=== PATIENT | female | born 1930 | race Caucasian/White ===

== ENCOUNTER → 2016-07-27 | Outpatient (CLI) | payer MEDICARE, OTHER ==
[~2016-07-27] MED LIST: ALDACTONE25 MG PO; ASPIRIN (CHILDR81 MG PO; CEFADROXIL500 MG; COLACE100 MG PO; COUMADIN ** IA5 MG; COUMADIN ** IA5 MG PO; COZAAR50 MG; COZAAR50 MG PO; DELTASONE10 MG PO; DUONEB INH; DURICEF (NON-500 MG PO; EFUDEX; ENSURE HIGH PR237 M1 PO; FISH OIL 1,2001 EAC2 PO; FOLIC ACID1 MG; FOLIC ACID1 MG PO; FORTEO 6001 PEN/600; LASIX20 MG; LASIX20 MG PO; LEVAQUIN 250 M250 MG PO; LEVOTHROID (S112 MCG PO; LEVOTHROID (S125 MCG; LIPITOR10 M1; LIPITOR80 MG PO; LOPRESSOR25 MG PO; MAG-OX-400(241400 MG; MAG-OX-400(241400 MG PO; METHOTREXA25 MG/1 M3 IM; MILK OF MA400 MG/5 M PO; MINOCIN100 M2; MINOCIN100 M2 PO; MULTIVITAMINS1 EAC1; NEURONTIN100 MG; NEURONTIN100 MG PO; NORCO 5-325 MG1 TAB PO; PRESERVISION A1 EACH PO; PROAIR HFA8.5 GM; RANITIDINE HCL150 M1 PO; REFRESH OPTIVE15 ML OPHTH; REFRESH P.M. O3.5 GM OPHTH; REMERON15 MG; ROBITUSSIN DM120 ML; SPIRIVA HANDIHA1 KIT; SPIRONOLACTONE25 MG; SYMBICORT 16010.2 GM INH; THERAGRAN-M1 TAB PO; TYLENOL EXTRA500 MG; TYLENOL EXTRA500 MG PO; VICKS DAYQUIL-1 EACH; VICKS NYQUIL C354 M2 PO; XARELTO20 MG PO
--- NOTE | ~2016-07-27 | PUL ---
PATIENT'S NAME: EMPERATRIZ MUÑOZ I [facility] AGE: 86 Y [address] ROOM: [place] [address] LOCATION: [facility] ADMIT DATE: 07/27/2016 Pulmonary DISCHARGE DATE: FAMILY PHYSICIAN: Jean Claude Foley MD ATTENDING PHYSICIAN: JAHAIRA HANSEN NAME OF PROCEDURE: Pulmonary Function Test DATE OF PROCEDURE: July 27, 2016 TECH: NAOMI Echeverria REASON FOR EXAM: COPD RESULTS: 1. FVC was 1.64 liters which is 104% of predicted and normal, FEV1 was 1.15 liters which is 101% of predicted and normal, and FEV1/FVC was 70% and normal. The flow volume curve did not reveal any significant airflow limitation. After bronchodilator administration FVC increased to 1.75 liters which is a 7% increase and FEV1 increased to 1.24 liters which is an 8% increase. FEV1/FVC was 71%. 2. DLCO was 6.3 with an adjusted DLCO of 6.9 which is 45% of predicted and low. 3. Total lung capacity was 3.88 liters which is 112% of predicted and normal, and residual volume was 2.23 liters which is 140% of predicted and normal. PHYSICIAN INTERPRETATION: The patient has no airflow limitation no significant bronchodilator response. Her diffusion capacity is moderately low. There is no evidence of restrictive lung disease. MD ROMÁN NASCIMENTO/adeola /[id number] dtt: 08/01/16 1443 , JAHAIRA HANSEN dtd: 08/01/16 1345
== END | disposition disaster alternative care site (69) ==
LOC: GRTH 09:00
DX: J43.9 Emphysema, unspecified (principal)

== ENCOUNTER 2016-08-08 17:13 | Inpatient (IN) | payer MEDICARE, OTHER ==
[~2016-08-08] VITALS: Ht 152.4 cm; Wt 71.4 kg
--- NOTE | ~2016-08-08 | CON ---
PATIENT'S NAME: EMPERATRIZ MUÑOZ I [facility] AGE: 86 Y [address] ROOM: [id number] [place], [place] [address] LOCATION: GPCU ADMIT DATE: 08/08/2016 Consultation DISCHARGE DATE: FAMILY PHYSICIAN: Jean Claude Foley MD ATTENDING PHYSICIAN: LULÚ WHITEHEAD V DATE OF CONSULTATION: 08/08/2016 REFERRING PHYSICIAN: Reginaldo Conner MD IDENTIFICATION: An 86-year-old female patient of Dr. Foley. HISTORY OF PRESENT ILLNESS: Mrs. Muñoz is an 86-year-old female patient, who developed central chest pain with some radiation to the jaw without any associated features or any other radiation, that was about 8 on a scale of 1-10 when she started having the pain. This is more or less lasted all through the night, and today, she went to for her routine checkup with Dr. Foley's office where her troponin was found to be elevated at 28, normal being 0.04 I think. She is hospitalized now, and her EKG shows heart rate of 60 beats per minute, and she has paced rhythm without any acute changes. Her pain is now down to about 4-5 on a scale of 1-10 with one nitroglycerin, but still, the pain is continuing on. The patient has some shortness of breath for the past 2 years. She has been in functional class III. There is no paroxysmal nocturnal dyspnea or orthopnea. She does have some dizziness. She denies syncopal spells. She has no palpitations. She has had a permanent pacemaker placed 5 years ago. She has some ankle edema. The patient has history of hypertension, elevated cholesterol, and she is an ex-smoker, who quit 25 years ago. She denies diabetes or family history of premature coronary artery disease. She was hospitalized about a month ago after having had a fall, and her troponin was elevated. She was on Coumadin for a longstanding history of pulmonary embolism. She was taken off the Coumadin, and she underwent a stress test, which was essentially unremarkable. There is no history of rheumatic fever or heart murmur. Her last echocardiogram really did not show any valvular abnormalities in 2013. There is no history of congestive heart failure or atrial fibrillation. CURRENT MEDICATIONS: 1. Aspirin 325 mg a day. PATIENT'S NAME: [facility] AGE: 86 Y [address] ROOM: [address] [place], [place] [address] LOCATION: GPCU ADMIT DATE: 08/08/2016 Consultation DISCHARGE DATE: FAMILY PHYSICIAN: Jean Claude Foley MD ATTENDING PHYSICIAN: LULÚ WHITEHEAD V 2. Atorvastatin 80 mg. 3. Nitroglycerin IV. 4. Methotrexate 10 mg every 14 days. 5. Vitamins. 6. Acetaminophen. 7. Atorvastatin 10 mg. 8. Duricef. 9. Folic acid. 10. Furosemide 20 mg a day. 11. Gabapentin 100 mg daily. 12. Levothyroxine. 13. Losartan 50 mg at bedtime. 14. Magnesium oxide 400 mg a day. 15. Minocycline 100 mg at bedtime. 16. [place]-3. 17. Combivent inhaler. 18. Refresh Optive eye drops. 19. Mineral oil. 20. Petrolatum. 21. Dextromethorphan. 22. Doxylamine. 23. Multivitamin. 24. Budesonide and formoterol. 25. Symbicort inhaler. 26. Ranitidine 150 mg a day. ALLERGIES: PENICILLIN, NEOMYCIN, BACITRACIN, POLYMYXIN, AMIODARONE. PAST MEDICAL HISTORY: 1. History of rheumatoid arthritis. 2. Methotrexate treatment. 3. History of fall with right shoulder hematoma, because of which she was taken off Coumadin. She is currently off. 4. History of pulmonary emboli in the past. 5. History of hypothyroidism. 6. Obstructive sleep apnea, noncompliant to CPAP. SOCIAL HISTORY: The patient lives by herself. She quit smoking in 1988. Does not drink any alcohol. FAMILY HISTORY: No premature coronary artery disease. PATIENT'S NAME: [facility] AGE: 86 Y [address] ROOM: [address] [place], [place] [address] LOCATION: GPCU ADMIT DATE: 08/08/2016 Consultation DISCHARGE DATE: FAMILY PHYSICIAN: Jean Claude Foley MD ATTENDING PHYSICIAN: LULÚ WHITEHEAD V REVIEW OF SYSTEMS: A 10-point review of systems reveal no significant positive other than the above. 1. The patient does have macular degeneration. 2. Discoloration of her facial skin. 3. DJD. 4. Lumbar spinal stenosis. 5. History of COPD. 6. Appendectomy. 7. Back surgery. 8. Ear surgery. 9. Right shoulder surgery. PHYSICAL EXAMINATION: VITAL SIGNS: On examination, her blood pressure is 130/80, heart rate is in the 60s and regular, respirations 18. The patient's pain is rated at 5 on a scale of 1-10. HEENT: Normal. NECK: Supple with no JVD, thyromegaly, lymphadenopathy, or carotid bruit. CARDIAC: PMI is not well located. First and second heart sounds are regular. There are no added sounds or murmurs. CHEST: Clear. ABDOMEN: Obese, soft. Bowel sounds are normally present. EXTREMITIES: Reveal no edema. Central nervous system is intact. ASSESSMENT AND PLAN: An 86-year-old female patient with prolonged chest pain with positive troponins up to 28 now. Her EKG shows a paced rhythm. Her BMP from last month show a creatinine of 1.0. Hemoglobin on July 27 was 11 g and platelet count is 272 in June. Her white count was 17 in June. Chest x-ray reveals no congestive heart failure. Eas-UV-vthzyux elevation myocardial infarction. As this is almost like a left bundle-branch block pattern, it is difficult to be sure whether she is having an acute ST-elevation myocardial infarction or not. Since she has had chest pain continuously for more than 12 hours, and her pain is still ongoing, we will proceed with cardiac catheterization at this time. Again, appreciate this opportunity to participate in the care of Mrs. Muñoz. She understands and agrees to proceed with the procedure. PATIENT'S NAME: EMPERATRIZ MUÑOZ I [facility] AGE: 86 Y [address] ROOM: [address] [address] LOCATION: GPCU ADMIT DATE: 08/08/2016 Consultation DISCHARGE DATE: FAMILY PHYSICIAN: Jean Claude Foley MD ATTENDING PHYSICIAN: LULÚ WHITEHEAD MD AMK/sandi /[id number] d: 08/09/16130 t: 08/09/16 1901, CONSULTATION REPORT
--- NOTE | ~2016-08-08 | DS ---
PATIENT'S NAME: EMPERATRIZ MUÑOZ I [facility] AGE: 86 Y [address] ROOM: [address] [place], [place] [address] LOCATION: GPCU ADMIT DATE: 08/08/2016 Discharge Summary DISCHARGE DATE: FAMILY PHYSICIAN: Jean Claude Foley MD ATTENDING PHYSICIAN: Stan Cruz V DISCHARGE DIAGNOSES: 1. Non-ST elevation myocardial infarction. 2. Chronic obstructive pulmonary disease. 3. Rheumatoid arthritis. 4. 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 5. Acute systolic and diastolic heart failure with an estimated ejection fraction of 45. 6. Cardiac pacemaker. REASON FOR ADMISSION: The patient came in with a chest pressure radiating to her back. This is associated with shortness of breath. LABORATORY DATA: Laboratory showed elevated enzymes. She subsequently had an elevated D-dimer as well. Chemistries showed a fairly benign blood gas on admission. Sodium and potassium were 142 and 3.6 on August 12. Potassium was down slightly at that point from admission. Calcium was slightly low at 8.1 with albumin low at 2.9. Initial AST was elevated; decreased subsequently, but still elevated. The proBNP was elevated at 3917 on August 11. TSH was normal. RADIOLOGY: Chest x-ray showed findings of fluid overload. HOSPITAL COURSE: The patient was out walking with physical therapy when she had a collapse. It is unknown whether or not she had acute PE or whether this was cardiac related because during the subsequent resuscitation time, she said she just wanted to . She was very lucid and articulate about this, and initially we placed her on palliative care, but over the course of 24 to 48 hours, with multiple family conferences, she decided that she would like to try rehab. She did not want a lot of diagnostic or therapeutic procedures, so we held back as far as that kind of thing, but she did say she would be willing to go to TCU and do physical therapy and occupational therapy, so we have ordered that to happen along with speech therapy. Note that in the last 12 hours, she has had weakness of the right upper and lower extremities consistent with TIA or CVA, probably the latter. Again, we have not been aggressive about looking into that because she wants to be comfortable. She is willing to work at rehab. In discussing the big picture with Dr. Foley yesterday, we elected to put her on Xarelto because we know PATIENT'S NAME: EMPERATRIZ MUÑOZ I [facility] AGE: 86 Y [address] ROOM: [id number] [place] [id number] LOCATION: GPCU ADMIT DATE: 08/08/2016 Discharge Summary DISCHARGE DATE: FAMILY PHYSICIAN: Jean Claude Foley MD ATTENDING PHYSICIAN: Stan Cruz V that clotting is a problem, both cardiac and pulmonary locations. At this time, she will be transferred. Medications per nursing med recon. Activity will be per physical therapy, occupational therapy, and speech. Diet will be as tolerated. Our primary goal again is going to be comfort and rehab and just see what she is willing and able to put up with. She has good family support, and we will go from there. MD EMILIA BENITEZ/modl /[id number] d: 08/13/16 1141 t: 08/13/16 174, DISCHARGE SUMMARY
--- NOTE | ~2016-08-08 | CON ---
PATIENT'S NAME: [facility] AGE: 86 Y [address] ROOM: [place] [address] LOCATION: GPCU ADMIT DATE: 08/08/2016 Consultation DISCHARGE DATE: 08/13/2016 FAMILY PHYSICIAN: Jean Claude Foley MD ATTENDING PHYSICIAN: Stan Cruz V DATE OF CONSULTATION: 08/12/2016 REFERRING PHYSICIAN: Reginaldo Conner MD PALLIATIVE MEDICINE CONSULTATION LOCATION: PCU Room [facility]. REFERRING PROVIDER: Yusuf Cottrell MD CHIEF COMPLAINT/REASON FOR CONSULTATION: Palliative Care referral for goals of care conversation. HISTORY OF PRESENT ILLNESS: The patient is an 86-year-old female who was admitted with complaints of sternal chest pain with radiation to her back. She was admitted for non- STEMI. She is status post heart catheterization which revealed reportedly a 100% occluded circumflex with an EF of 45%. Apparently this was going to be managed medically, but the day before this consult, the patient was walking in the rae with Physical Therapy. Had an unresponsive episode and a rapid response was called. She did require bagging by respiratory therapy, but during the event, she had periods of lucidity and had told staff that she just wanted to . On the day of the consult, the patient is lying in the bed, refusing all medications except for morphine, and refusing to eat or get out of bed. Given this, Palliative Care has been consulted to assist the patient and family with goals of care conversation. Reportedly, the patient lives alone at home with her daughter checking in on a daily basis. I do note that she has had a number of ER visits due to falls at home, one resulting in a hematoma to her chest wall recently. PAST SURGICAL HISTORY: Previous Operations: 1. x2. 2. Appendectomy. 3. Ear surgeries x3. 4. Back fusion. 5. Bilateral cataracts. 6. ORIF of the left wrist. PATIENT'S NAME: [facility] AGE: 86 Y [address] ROOM: [place] [address] LOCATION: GPCU ADMIT DATE: 08/08/2016 Consultation DISCHARGE DATE: 08/13/2016 FAMILY PHYSICIAN: Jean Claude Foley MD ATTENDING PHYSICIAN: Stan Cruz V 7. Right total shoulder. 8. Pacemaker placement in 2013. 9. Venous ablation of the left leg. 10. A cysto with a right stent. 11. Bilateral intra-ocular lens implants. 12. Carpal tunnel release. PAST MEDICAL HISTORY: 1. Rheumatoid arthritis. 2. Atrial fibrillation. 3. Hypertension. 4. Coronary artery disease. 5. History of PE. 6. Hypothyroidism. 7. Sick sinus syndrome. 8. COPD. 9. History of basal cell skin cancer. 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 11. GERD. MEDICATIONS: Home medications: 1. Tylenol 500 mg every 4 hours as needed. 2. Lipitor 10 mg p.o. at bedtime. 3. Symbicort 160/4.5 two puffs twice daily. 4. Refresh eyedrops 1 drop as needed. 5. Duricef 500 mg p.o. twice daily. 6. Vicks NyQuil 30 mg as needed. 7. Folic acid 1 mg as needed. 8. Lasix 20 mg daily. 9. Neurontin 100 mg p.o. daily. 10. Ipratropium and albuterol nebulizers 4 times daily. 11. Levothroid 112 mcg p.o. daily. 12. Cozaar 50 mg p.o. daily. 13. Magnesium oxide 400 mg daily. 14. Methotrexate 10 mg IM every 4 days. 15. Mineral oil eyedrops as needed or ointment as needed. 16. Minocin 100 mg p.o. daily. 17. Theragran multivitamin 1 tablet daily. 18. Fish oil 1200 mg daily. 19. Ranitidine 150 mg daily. 20. PreserVision eyedrops 1 cap twice daily. ALLERGIES: PENICILLIN, NEOMYCIN, BACITRACIN, AMIODARONE, AND POLYMYXIN B. PATIENT'S NAME: EMPERATRIZ MUÑOZ I [facility] AGE: 86 Y [address] ROOM: [place] [address] LOCATION: [facility] ADMIT DATE: 08/08/2016 Consultation DISCHARGE DATE: 08/13/2016 FAMILY PHYSICIAN: Jean Claude Foley MD ATTENDING PHYSICIAN: Stan Cruz V SOCIAL HISTORY: The patient is . Her of cancer a number of years ago. She has 3 children. A son and a daughter live [facility] [place] [facility] and a daughter is in [place]. She has a history of smoking a pack a day for 40 years. She quit in 1988. No current tobacco or alcohol use. FAMILY HISTORY: Has multiple brothers and sisters with heart disease and diabetes. Her mother of a stroke in her 80s and her father in accident when the patient was very young. REVIEW OF SYSTEMS: GENERAL: The patient is currently refusing any food. Denies being hungry. No changes in weight recently. No recent fever, chills, or night sweats. Denies fatigue. HEENT: No changes in vision or hearing. Her vision is not the best. No headaches. No sinus congestion. RESPIRATORY: Denies shortness of breath. CARDIOVASCULAR: No chest pain currently. No peripheral edema. GASTROINTESTINAL: Denies nausea, vomiting, diarrhea, or constipation. No blood in her stools. Denies difficulties chewing or swallowing. GENITOURINARY: No dysuria. MUSCULOSKELETAL: Denies any joint swelling or joint pain. Denies back pain. Was ambulating independently at home. Does have a history of falls at home. No falls at the hospital. NEUROLOGICAL: Denies any numbness or tingling. No recent seizures. Does have some dizziness when up. INTEGUMENTARY: No rashes or open areas. HEMATOLOGICAL: No new bruising or bleeding. Does have a history of PEs. PSYCHIATRIC: Denies feeling overtly depressed or anxious. PHYSICAL EXAMINATION: VITAL SIGNS: Blood pressure 116/56, heart rate 50, temperature 97.7, respirations 16, and O2 saturation 97% on 2 L. GENERAL: Reveals an alert and oriented elderly white female, who is lying in the hospital bed. Does not appear to be in any acute distress. She is refusing all attempts to give medications or offer food or fluids. HEENT: Normocephalic and atraumatic. Pupils are equal and reactive to light. Sclerae anicteric. Conjunctivae pink. Tongue and mucous membranes are moist and pink. She does have a blue discoloration around her mouth and to the skin of her face which I am told is from amiodarone toxicity. CARDIOVASCULAR: Heart tones are regular. She is in a paced rhythm. RESPIRATORY: Respirations are regular and nonlabored. Lung sounds are rales bilaterally. PATIENT'S NAME: MUÑOZEMPERATRIZ I [facility] AGE: 86 Y [address] ROOM: [address] [place], [place] [address] LOCATION: GPCU ADMIT DATE: 08/08/2016 Consultation DISCHARGE DATE: 08/13/2016 FAMILY PHYSICIAN: Jean Claude Foley MD ATTENDING PHYSICIAN: Stan Cruz V GASTROINTESTINAL: Abdomen is soft, nontender. Bowel sounds are present. GENITOURINARY: No Lozoya catheter. MUSCULOSKELETAL: No significant joint deformities. Peripheral pulses are 1+ bilaterally. SKIN: Warm and dry. No new open areas. NEUROLOGICAL: Grossly intact. Mental status is unremarkable. PSYCHIATRIC: Displays appropriate mood and affect given the situation. IMPRESSION AND PLAN: 1. Advanced age. 2. Coronary artery disease with 100% occlusion. 3. Goals of care conversation. I spent 35 minutes discussing goals of care and advance care planning with the patient and family. 4. Code status: The patient is a DNR/DNI and this was confirmed with the patient and her family. I had a long conversation with the patient and family on the role of palliative care and discussed goals and various options. Given her situation, I explained to the patient that despite the fact that she has stopped taking her medications and is refusing to eat that there is nothing that is going to take her in the next few hours or even days most likely. Discussed with her the options of having 24-hour caregivers at home and involving Hospice Services versus continuing to take medications and eating and trying some therapy to increase the possibility that she would be able to return home and have some quality of life. Also discussed the possibility of needing long term placement should the patient refuse to get out of bed and not participate in her cares. I have discussed what her quality of life was like prior to this incident and what it could be following if she wished to participate in her cares. I provided education to the family on hospice versus skilled options at the long term or at home plus or minus paid caregivers. At this point, patient is wishing to think about her options. Encouraged her to take her time and consider all presented options. I updated Sudha with Care Management as well as Dr. Cottrell on my conversation with the patient and her family. Upon this conversation, it was decided that the patient would like to try to go to the transitional care unit in the next couple of days and try therapy for a while, but at this point, patient has not decided if she even wants to take her medications at this point. We will continue to follow for further goals of care conversation as we see how the next couple of days go. I answered the patient's and family's questions to their satisfaction. They denied any spiritual needs at this time. Total visit time was initially 45 minutes greater than 50% percent of this time was spent providing education and counseling to the family, an additional 20 minutes was spent coordinating care with the primary care provider and care management as well as transitional care unit. PATIENT'S NAME: EMPERATRIZ MUÑOZ I [facility] AGE: 86 Y [address] ROOM: [place] [address] LOCATION: [facility] ADMIT DATE: 08/08/2016 Consultation DISCHARGE DATE: 08/13/2016 FAMILY PHYSICIAN: Jean Claude Foley MD ATTENDING PHYSICIAN: Stan Cruz V Thank you for allowing me to assist the patient and family. LINDA AWAN NP FOR JAHAIRA HANSEN MD DLS/modl /[id number] d: 08/18/16 0004 t: 08/22/16 1125, CONSULTATION REPORT
--- NOTE | ~2016-08-08 | CATH ---
Cardiac Diagnostic Report Demographics Patient Name TONI AWAN I Gender Female Date of 1930 Age 86 year(s) Patient Number [id number] Date of Study Visit Number [id number] Room Number G6320 [place] [id number] Ht 142.24 cm Wt 73.8 kg Referring [facility] Jean Claude Mccrary Primary Physician Physician Performing Jacob Secondary Physician Physician Anu GOLDMAN Diagnostic Jacob Assisting Physician Physician Anu GOLDMAN Interventional Physician Gasoline Finisher Physician Findings and Conclusions Procedure Description The patient was brought to the diagnostic cardiac catheterization-EP laboratory in the fasting, non-sedated state. Informed consent was obtained in the written and verbal form after the risks and benefits were explained. The patient had no further questions and agreed to proceed. The planned puncture-incision site(s) were shaved and prepped with ChloraPrep and draped in the usual sterile manner. Conscious sedation, supplemental oxygen, and pain control medications were delivered by a registered nurse under physician guidance. Surface ECG rhythm, blood pressure measurement, and pulse oximetry were monitored throughout the procedure. Arterial access. The access site was infiltrated with lidocaine. The vessel was entered with the Seldinger technique. A sheath was advanced into the vessel and used for catheter placement. Selective left coronary angiography. A catheter was advanced into the left coronary vessel ostium under Fluoroscopic guidance. Contrast was injected by hand. Images were obtained in multiple projections. Selective right coronary angiography. A catheter was advanced into the right coronary vessel ostium under fluoroscopic guidance. Contrast was injected by hand. Images were obtained in multiple projections. Arterial artery hemostasis was achieved. The patient was transferred to a regular nursing floor via cart accompanied by a nurse. The patient left the laboratory in stable condition. Procedure Procedure Type Diagnostic procedure:Angiography:, Coronary Angios Indications: Non-ST elevation AR. Angiographic Findings Dominance: Right Cardiac Arteries and Lesion Findings LMCA: Luminal irregularities. Procedure Data Medical History Performed Procedures and Imaging Results - Stress testing with SPECT MPIwas performed on 06/29/2016. Results were: Negative. Allergies - Penicillin. - Other:(Neomycin, Bacitracin, Amiodarone, Polymyxin). Risk Factors The patient risk factors include:hypertension, chronic lung disease, last creatinine: 1 mg/dl, creatinine clearance: 46.18 ml/min and dyslipidemia. Admission Data Admission Date: 08/08/2016 Admission Time: 05:18 PM Admit Source: Emergency department Insurance Payors: Medicare. Admission Medications + +------+-------+ + + + + !Medication!Dosage!Times !Last !Last !Administered !Comments ! ! ! !Per Day!Delivery !Delivery ! ! ! ! ! ! !Date !Time ! ! ! + +------+-------+ + + + + !Statin ! ! ! ! !Yes ! ! !(any) ! ! ! ! ! ! ! + +------+-------+ + + + + !ARB (any) ! ! ! ! !Yes ! ! + +------+-------+ + + + + !Aspirin ! ! ! ! !Yes ! ! !(any) ! ! ! ! ! ! ! + +------+-------+ + + + + Clinical Evaluation Leading to Procedure - The patient's CAD presentation was assessed as: Non-STEMI.The symptom onset was first noted on 08/07/2016 06:00 PM(time was estimated). - The patient's anginal syndrome during the past two weeks was assessed as: Class IV according to the [place] Cardiovascular Society Classification System (CCS). [place] . Ejection Fraction - Method: Radionucleotide. EF%: 75. Signatures dtt: Anu James dtd: 08/10/16 1609 Physician Self Edit
--- NOTE | ~2016-08-08 | HP ---
PATIENT'S NAME: EMPERATRIZ MUÑOZ I [facility] AGE: 86 Y [address] ROOM: [place] [address] LOCATION: GPCU ADMIT DATE: 08/08/2016 History & Physical DISCHARGE DATE: FAMILY PHYSICIAN: Jean Claude Foley MD ATTENDING PHYSICIAN: LULÚ WHITEHEAD V DATE OF SERVICE: CHIEF COMPLAINT: Chest pain. HISTORY OF PRESENT ILLNESS: The patient is an 86-year-old female who came to see her PCP earlier today. She developed sternal chest pressure with radiation to her back starting yesterday. This was constant and was associated with some mild dyspnea. It was not alleviated or improved by any maneuvers or positions. She has never had a sensation like this before. In her PMD's office, the patient had a ventricularly paced rhythm on her EKG and a troponin I of 28. She was subsequently sent to the hospital with the instructions to be admitted to my service. Upon seeing the patient, I did see that her troponin was 28. I immediately gave her several pills of nitro sublingually which did make her chest pain better. Of note, the patient had a recent cardiac workup with a negative nuclear stress test. Also of note, she was recently taken off long-standing anticoagulation due to a cutaneous hematoma. REVIEW OF SYSTEMS: All systems have been reviewed and negative aside from pertinent positives mentioned above. PAST MEDICAL HISTORY: 1. Rheumatoid arthritis. 2. Questionable history of atrial fibrillation as the patient was on long- term anticoagulation as well as on amiodarone. 3. Amiodarone toxicity with dermal manifestations. 4. Status post pacemaker. 5. History of a shoulder replacement. 6. Essential hypertension. 7. History of PE. 8. Hypothyroidism. 9. Sick sinus syndrome. 10. Questionable history of COPD. PATIENT'S NAME: EMPERATRIZ MUÑOZ I [facility] AGE: 86 Y [address] ROOM: [place] [address] LOCATION: GPCU ADMIT DATE: 08/08/2016 History & Physical DISCHARGE DATE: FAMILY PHYSICIAN: Jean Claude Foley MD ATTENDING PHYSICIAN: LULÚ WHITEHEAD V SOCIAL HISTORY: Significant for distant history of smoking. No ongoing or history of alcohol or drug use. FAMILY HISTORY: Significant for stroke in her mother. CURRENT MEDICATIONS: 1. Acetaminophen. 2. Atorvastatin. 3. Symbicort. 4. Carboxymethylcellulose. 5. Dextromethorphan. 6. Folic acid. 7. Furosemide. 8. Gabapentin. 9. Ipratropium-albuterol. 10. Levothyroxine. 11. Losartan. 12. Magnesium oxide. 13. Methotrexate. 14. Mineral oil. 15. Minocycline. 16. Multivitamin. 17. Alexis-3. 18. Ranitidine. 19. PreserVision. PHYSICAL EXAMINATION: VITAL SIGNS: Upon my exam, the patient's vital signs are blood pressure is 130/60, heart rate is 95, saturating 100% on 2 L nasal cannula, afebrile, respirations are 16. GENERAL: Appears as an elderly frail female in mild to moderate distress due to chest pressure. NEUROLOGIC: Grossly nonfocal. SKIN: Does reveal bluish discoloration of her skin around her face which is attributed to amiodarone toxicity. LYMPHATIC: Showed no cervical lymphadenopathy. ENDOCRINE: Showed no thyromegaly. LUNGS: Showed trace crackles at bases bilaterally. HEART: Reveals regular rate and rhythm without appreciable murmurs, gallops, or rubs. There is 2+ bilateral pitting lower extremity edema slightly more pronounced on the left. GI: Abdomen soft, nontender, nondistended. PATIENT'S NAME: EMPERATRIZ MUÑOZ I [facility] AGE: 86 Y [address] ROOM: [place] [address] [facility] ADMIT DATE: 08/08/2016 History & Physical DISCHARGE DATE: FAMILY PHYSICIAN: Jean Claude Foley MD ATTENDING PHYSICIAN: LULÚ WHITEHEAD V : Reveals no costovertebral angle tenderness. VASCULAR: Reveals 2+ pedal pulses. MUSCULOSKELETAL: Shows no muscle or joint abnormalities. PSYCHIATRIC: Reveals appropriate mood, cognition, and affect. LABORATORY DATA: Studies from the physician's office significant for a troponin of 28. EKG shows normal sinus rhythm with left ventricular bundle-branch block, but also pacer spikes appreciable. ASSESSMENT AND PLAN: This is an 86-year-old female admitted with chest pressure and troponin elevation most likely due to: 1. Acute coronary syndrome. I did give the patient several nitro tablets and she did feel better. As such, we will start her on nitro drip. We will give her 4 baby aspirins. We will give her a full dose atorvastatin and begin her on a heparin drip per cardiac protocol. I will also get a stat cardiology evaluation. I have already spoken with Dr. James about this patient. 2. Chronic obstructive pulmonary disease: We will continue her on her nebulizers. 3. Rheumatoid arthritis: We will hold off on her methotrexate. 4. In relationship with her acute coronary syndrome, we will also get a full set of cardiac enzymes, EKG, and a chest x-ray as well. We will keep her n.p.o. until she is seen by Cardiology and we have a course of action. Additional management will depend on clinical course. Time dedicated to this patient's encounter is 35 minutes. MD YAMILA CARTER/sandi /[id number] D: [id number] T: [id number] HISTORY & PHYSICAL
--- NOTE | ~2016-08-08 | ECHO ---
Transthoracic Echocardiography Report (TTE) Demographics Patient Name EMPERATRIZ MUÑOZ I Date of Study 08/10/2016 Patient Number [id number] Visit Number [id number] Date of 1930 Room Number G6320 Gender Female Number Age 86 year(s) Referring [facility] Jean Claude Mccrary MD Client Server Programmer Benjy Estrada T, Physician Anthony Pierce V [facility] Physician Interpreting Dalila Weaver Air Operations Manager Physician A Supervising Ordering Dalila Weaver MD/MLP Physician A Nurse Stress Tire Service Technician Conclusions Summary Limited echo for evaluation of a presence of pericardial effusion. Estimated EF: 45 %. Inferior hypokinesis. Small anterior pericardial effusion. There is no echocardiographic evidence of cardiac tamponade. Procedure Type of Study TTE procedure:Echo Limited w/o Contrast. Procedure Date Date: 08/10/2016 Start: 06:05 PM Study Location: Imaging Center Technical Quality: Adequate visualization Indications:Hypotension. Appropriate Use Criteria: 8 Patient Status: Routine Rhythm: NSR HR: 104 bpm BP: 105/51 mmHg Allergies - Penicillin. - Other:(Neomycin, Bacitracin, Amiodarone, Polymyxin). Findings Left Ventricle Estimated EF: 45 %. Inferior hypokinesis. Right Ventricle Device lead noted in the right ventricle. Normal right ventricular size and function. Left Atrium The left atrium is mildly to moderately dilated. Mitral Valve Severe mitral annular calcification. Thickened mitral valve. Aortic Valve Moderately sclerotic trileaflet aortic valve. Pericardial Effusion Small anterior pericardial effusion. There is no echocardiographic evidence of cardiac tamponade. Signature dtt: Reginaldo Conner dtd: 08/10/16 1805 Physician Self Edit
--- NOTE | ~2016-08-08 | ECHO ---
Transthoracic Echocardiography Report (TTE) Demographics Patient Name EMPERATRIZ MUÑOZ I Date of Study 08/09/2016 Patient Number [id number] Visit Number [id number] Date of 1930 Room Number G6320 Accession Number [id number] Gender Female Age 86 year(s) Referring Surekha Coronado Sleeve Fixer Shelbie Crowder [facility] Physician Physician Interpreting Dalila Weaver Contract Runner Physician A MD Supervising Ordering Physician MD/CHASE Nurse Stress Dye Operator Conclusions Contractility Score Summary Normal Left Ventricular contractility was noted. Summary Technically difficult exam. The estimated ventricular ejection fraction is 55-60% Diastolic assessment reveals Grade I diastolic dysfunction. Mild mitral regurgitation by color Doppler. Moderate to severe mitral annular calcification. Moderate calcification of the mitral valve. Mild-moderate tricuspid regurgitation by color Doppler. There is moderate pulmonary hypertension. The pulmonary pressure (RVSP) is 50 mmHg. The left atrium is moderately to severely dilated by LA volume index measurement. Procedure Type of Study TTE procedure:2D Echocardiogram. Procedure Date Date: 08/09/2016 Start: 01:12 PM Study Location: Inpatient Portable Technical Quality: Fair Indications:Acute myocardial infarction and Chest pain. Appropriate Use Criteria: 9 Patient Status: Routine HR: 76 bpm BP: 135/78 mmHg Allergies - Penicillin. - Other:(Neomycin, Bacitracin, Amiodarone, Polymyxin). M-Mode/2D Measurements LV Diastolic Dimension: 4.78 cm LV Systolic Dimension: 3.91 cm LV Septum Diastolic: 0.94 cm LV PW Diastolic: 1 cm AO Root Dimension: 1.8 cm Cardiac Output: 6.92 l/min LA Dimension: 4.5 cm EF Estimated: 55 % LVOT: 2 cm LVOT VTI: 29 cm LV Stroke volume: 91.06 ml Doppler Measurements AV Peak Velocity: 2.01 m/s MV Peak E-Wave: 1.38 m/s AV Peak Gradient: 16.16 mmHg MV Peak A-Wave: 1.63 m/s AV Mean Gradient: 8 mmHg MV E/A Ratio: 0.85 LVOT Peak Velocity: 1.49 m/s MV P1/2t: 45 msec TR Gradient:39.94 mmHg PV Peak Velocity: 1.08 m/s Estimated RAP:10 mmHg PV Peak Gradient: 4.67 mmHg Estimated RVSP: 50 mmHg Estimated PASP: 49.94 mmHg E' Septal Velocity: 0.05 m/s A' Septal Velocity: 0.06 m/s E' Lateral Velocity: 0.06 m/s A' Lateral Velocity: 0.08 m/s Findings Left Ventricle Diastolic assessment reveals Grade I diastolic dysfunction. The left ventricle is borderline dilated . Posterior hypokinesis. Right Ventricle Normal right ventricle structure and function. Pacemaker lead noted in the right ventricle. Left Atrium The left atrium is moderately to severely dilated by LA volume index measurement. Right Atrium Dilated IVC with poor inspiratory collapse consistent with elevated RA pressure. Mitral Valve Mild mitral regurgitation by color Doppler. Severe mitral annular calcification. Moderate calcification of the mitral valve. Aortic Valve The aortic valve is moderately sclerotic. Tricuspid Valve Mild-moderate tricuspid regurgitation by color Doppler. There is moderate pulmonary hypertension. The pulmonary pressure (RVSP) is 50 mmHg. Pulmonic Valve Normal pulmonic valve structure and function. Pericardial Effusion No pericardial effusion. Contractility Score LV regional wall motion:(0-Non visualized 1-Normal 2-Hypokinesis 3-Akinesis 4-Dyskinesis 5-Aneurysm) Signature dtt: Reginaldo Conner dtd: 08/09/16 1312 Physician Self Edit
[~2016-08-08 17:13] MED LIST changes: -ASPIRIN (CHILDR81 MG PO; -LOPRESSOR25 MG PO; -MILK OF MA400 MG/5 M PO; -RANITIDINE HCL150 M1 PO; -SYMBICORT 16010.2 GM INH; -XARELTO20 MG PO
[2016-08-08] MEDS ORDERED: RANITIDINE HCL150 M1 PO (18:15)
[2016-08-08] MEDS ORDERED: SYMBICORT 16010.2 GM INH (18:15)
[2016-08-08 19:04] LABS: BASOPHIL % 0.4 %; EOSINOPHIL # 0.1 K/uL (0.0-0.5); EOSINOPHIL % 0.8 %; HEMATOCRIT 34.3 % (30.0-46.0); IMMATURE GRANULOCYTE % 0.3 %; LYMPHOCYTE # 1.5 K/uL (0.8-4.0); LYMPHOCYTE % 14.5 %; MCH 28.4 pg (27.0-34.0); MCHC 32.1 gm/dL (32.0-36.5); MCV 88.6 fl (83.0-98.0); MONOCYTE # 1.4 K/uL (0.0-1.0); MONOCYTE % 13.5 %; MPV 9.7 fl (9.4-12.4); NEUTROPHIL # (ANC) 7.4 K/uL (1.8-7.8); NEUTROPHIL % 70.5 %; NRBC % 0 /100WBC (0-0.00); PLATELET COUNT 273 K/uL (150-450); RBC 3.87 M/uL (3.00-5.00); RDW-CV 18.7 % (11.9-14.6); WBC 10.5 K/uL (4.0-11.0)
--- NOTE | 2016-08-08 19:21 | NUR ---
Patient is 86 yo female admitted this evening for chest pain that started last evening around 6-7 pm. daughter accompanies patient and gives most of history. patient is hard of hearing. patient lives at home by herself. daughter lives 1/2 block away. saline lock is started in left inner forearm with 20 ga intracath without difficulty. patient corwin well. 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 patient denies questions at this time. call light is within reach. report is given to SMITHA Ramirez.
--- NOTE | 2016-08-08 19:21 | NUR ---
PATIENT TO PCU FROM ADMISSIONS PER W/C AT 17:25. VITALS BP 118/58, MAP 83, HR 80, TEMP 97.9, RR 18, SATS 95% ON RA. PATIENT C/O SHORTNESS OF BREATH AND CHEST PRESSURE THAT IS WORSE WITH DEEP BREATH. DR WHITEHEAD NOTIFIED OF HER ARRIVAL TO FLOOR AND SYPMTOMS. FAMILY AT BEDSIDE.
[2016-08-08 19:23] LABS: ANION GAP 11.5 (10.0-19.0); CALCIUM 8.7 mg/dL (8.5-10.5); MAGNESIUM 1.9 mg/dL (1.3-2.6); PHOSPHORUS 3.3 mg/dL (2.5-4.9); POTASSIUM 3.5 mMol/L (3.7-5.1); TOTAL BILIRUBIN 0.4 mg/dL (0.0-1.5); TOTAL PROTEIN 6.6 g/dL (6.0-8.4)
[2016-08-09 04:10] LABS: ALBUMIN 2.7 gm/dL (3.5-5.0); CALCIUM 8.4 mg/dL (8.5-10.5); CREATININE 0.9 mg/dL (0.5-1.1); TOTAL BILIRUBIN 0.4 mg/dL (0.0-1.5); TOTAL PROTEIN 6.2 g/dL (6.0-8.4)
[2016-08-09 04:11] LABS: ANION GAP 16.1 (10.0-19.0)
[2016-08-09 04:12] LABS: POTASSIUM 4.1 mMol/L (3.7-5.1)
--- NOTE | 2016-08-09 05:30 | NUR ---
Significant Event: PATIENT IS A/O X3. VSS. HR 60-70'S IN PACED RHYTHM. SBP 90-130'S. AFEBRILE. 02 SATS IN MID TO UPPER 90'S ON 2L 02 FOR COMFORT. C/O PAIN BEFORE SCIENCE INSTRUCTOR PROCEDURE BUT NO C/O PAIN SINCE. NITRO STARTED BUT SHUT OFF WHEN IN SCIENCE INSTRUCTOR. LUNGS SLIGHTLY COARSE WITH OCCASIONAL WHEEZES IN UPPER LBOES AND DIM IN BASES. VERY SOB WITH ACTIVITY. UP WITH 1A WITH WALKER/GB. CANE IN ROOM NO TO NOT PUT PRESSURE ON RIGHT WRIST. C/O CONSTIPATION BUT HAD SMALL BM THIS SHIFT. VOIDS PER RESTROOM. CONTINUES TO HAVE BLUISH TINT TO MOUTH AND PARTS OF FACE. PATIENT'S BASELINE ACCORDING TO FAMILY. HAS ECCHYMOTIC AREA TO BACK FROM PREVIOUS HEMATOMA. TR BAND STILL INTACT TO RIGHT WRIST. LOOSENED AND RETIGHTENED MULTIPLE TIMES DUE TO OOZING. HEPARIN RUNNING AT 900 UNITS/HR. NEXT PTTHP AT 1000. CRITICAL HIGH AFTER SURGERY. IV TO LEFT HAND SL AND LEFT FOREARM WITH HEPARIN. Follow up: CONTINUE TO MONITOR PER PLAN OF CARE.
--- NOTE | 2016-08-09 16:53 | NUR ---
Significant Event: A/OX3, VSS ON ROOM AIR. RIGHT RADIAL CATH SITE HAS BAND-AID/COBAN DRESSING-C/D/I, TR BAND REMOVED THIS AM, SITE HAS 2+ PULSE, NO DRAINAGE OR BRUISING NOTED TO SITE. RIGHT GROIN CATH SITE IS SOFT, NO HEMATOMA NOTED, DRESSING IS GAUZE/TEGADERM-C/D/I. PT. GETS UP SBA TO BATHROOM. SLIV TO L)HAND. L)FA IV HAS HEPARIN @ 900 UNITS/HR, NEXT PTTHP DUE AT 1640. NO COMPLAINTS OF PAIN THIS SHIFT. FAMILY HERE. SLEPT THIS AFTERNOON. STARTED ON PO LOPRESSER TODAY. ECHO DONE TODAY. LABS IN AM. Follow up: CONTINUE WITH POC.
--- NOTE | 2016-08-10 05:11 | NUR ---
Pt a/o x3 QAWALANGIN. VSS on RA, afebrile. Con't on heparin gtt at 900. Currently on BID PTTHP's. Skin is still blue around lips-pts baseline. Repositions self. SBA with cane to RR. R wrist/groin site benign. Dressings could be changed to bandaids today. Plan: ?d/c heparin con't plan of care
[2016-08-10 06:11] LABS: ALBUMIN 2.5 gm/dL (3.5-5.0); ANION GAP 12.1 (10.0-19.0); CALCIUM 8.1 mg/dL (8.5-10.5); CREATININE 0.9 mg/dL (0.5-1.1); PHOSPHORUS 2.5 mg/dL (2.5-4.9); POTASSIUM 4.1 mMol/L (3.7-5.1)
[2016-08-10 11:15] LABS: HEMATOCRIT 29.8 % (30.0-46.0); HEMOGLOBIN 9.5 g/dL (10.0-15.0)
--- NOTE | 2016-08-10 11:45 | NUR ---
Introduced self and role of care management to patient's daughter. Patient is sleeping. Patient lives alone in [place]. Daughter lives a 1/2 block from her and helps her daily as needed. She says mother's home is well set up for her and her limitations. She has a walker, cane and w/c at home. Her bathroom has walk in shower, grab bars etc. Her bed adjusts and has a siderail. She has lift chair and has a stair lift to her basement. Daughter says plan will be for patient to go home when ready for discharge. Asked her about HHC and she doesn't think mom needs it at this time. Will follow.
--- NOTE | 2016-08-10 17:27 | NUR ---
Significant Event: A/Ox3. SBP-70-110s. MAPs 54-60s. 100.2 fever with first assessment, treated with tylenol and had been afebrile since. Room air with saturations in mid to upper 90s. Tahcypnic at times. L) AC and L) hand IV. NS running at 40ml/hr. 1L bolus and 2 albumin 5% in 500ml given for hypotension. Patient denied dizziness and stated she felt normal. Heparin d/c'd. Will check H/H in am. R) radial and R) groin cath sites soft and eccymotic, both changed to bandaid. Patient is up with 1a/walker.
--- NOTE | 2016-08-11 04:21 | NUR ---
Pt slept off and on throughout the night. she woke up at one point with sob and impending doom feeling and very anxious feeling. repositioned and applied o2 as she was 90% on RA. She stated she felt better after I checked her bp. SBP has been 110's all night. Dr. Vazquez saw pt no new orders other than the o2. lung sounds were clear and remained clear all night. Con't on NS at 40 ml/hr to LH. r wrist/groin sites both benign. sba with cane to rr. Plan: ? d/c today?
[2016-08-11 09:34] LABS: HEMATOCRIT 29.9 % (30.0-46.0); HEMOGLOBIN 9.1 g/dL (10.0-15.0)
[2016-08-11 15:27] LABS: BICARBONATE 22.6 mmol/L (18.0-23.0); PCO2 40 mmHg (35-45); PO2 72 mmHg (80-90)
[2016-08-11 16:09] LABS: BASOPHIL # 0.1 K/uL (0.0-0.2); BASOPHIL % 0.6 %; EOSINOPHIL # 0.2 K/uL (0.0-0.5); EOSINOPHIL % 1.6 %; HEMATOCRIT 32.9 % (30.0-46.0); HEMOGLOBIN 10.3 g/dL (10.0-15.0); IMMATURE GRANULOCYTE # 0.1 K/uL (0.0-0.3); IMMATURE GRANULOCYTE % 0.7 %; LYMPHOCYTE # 1.6 K/uL (0.8-4.0); LYMPHOCYTE % 10.9 %; MCH 28.3 pg (27.0-34.0); MCHC 31.3 gm/dL (32.0-36.5); MCV 90.4 fl (83.0-98.0); MONOCYTE # 2.1 K/uL (0.0-1.0); MPV 9.8 fl (9.4-12.4); NEUTROPHIL # (ANC) 10.6 K/uL (1.8-7.8); NEUTROPHIL % 72.2 %; NRBC % 0 /100WBC (0-0.00); PLATELET COUNT 286 K/uL (150-450); RBC 3.64 M/uL (3.00-5.00); RDW-CV 19.2 % (11.9-14.6); WBC 14.6 K/uL (4.0-11.0)
[2016-08-11 16:30] LABS: ALBUMIN 3.4 gm/dL (3.5-5.0); ANION GAP 14.1 (10.0-19.0); CALCIUM 8.3 mg/dL (8.5-10.5); CREATININE 1.1 mg/dL (0.5-1.1); POTASSIUM 4.1 mMol/L (3.7-5.1); TOTAL PROTEIN 6.6 g/dL (6.0-8.4)
[2016-08-11 16:34] LABS: TOTAL BILIRUBIN 0.7 mg/dL (0.0-1.5)
--- NOTE | 2016-08-11 17:51 | NUR ---
Significant Event: A/OX3, VSS ON 3L PER NC. PT. HAD A EPISODE THIS MORNING WHEN SHE WAS IN THE BATHROOM WITH DAUGHTER AND WAS SOB, OXYGEN THE NIGHT RN APPLIED WASN'T ON. I APPLIED O2 AND PT. WENT BACK TO BE, SATS WERE IN THE LOW 90% WHEN GETTING BACK TO BED. AROUND 1445 CARDI[facility] REHAB WAS WALKING PT. IN HALLS AND SHE WAS DOWN THE FLORES 80ft FROM ROOM. PT. ALL OF THE SUDDEN BECAOME UNRESPONSIVE TURNED CYANOTIC AND WAS HELPED TO W/C, TAKEN BACK TO ROOM. TELE PROCEDED TO CALL NURSE (ME) AND I RAN TO ROOM. WE STARTED GETTING PT. BACK ONTO THE MONITOR, CALLED CHARGE AND SONG AND DANCE PERFORMER WAS CALLED, GOT PT. BACK TO BED. 60mg OF LASIX WAS GIVEN, LABS DRAWN, CHEST X-RAY, 2mg MS GIVEN. DR. RAMOS CAME, MADE PT. MADE A DNR, PALLATATIVE CARE CONSULT (MESSAGE LEFT WITH RAI AWAN CALLED). PT. DOING MUCH BETTER, A/OX3 NOW, O2 INCREASE TO 3L. ROCA PLACED WITH 950ml UOP. NO COMPLAINTS OF PAIN THIS SHIFT. DAUGHTER HERE IN ROOM. Follow up: CONTINUE WITH POC.
--- NOTE | 2016-08-12 05:40 | NUR ---
Significant Event: Patient is alert and oriented x 3. VSS on 2L of O2. Pacemaker. HRs in the 50s-70s. SBPs in the 1 teens-120s. Afebrile. Up with 1 assist, walker, and gait belt. Turn q2 hours if patient allowed, refused at times. Lozoya intact. Morphine given for chest pain/dyspnea, last at 0243. Left hand IV, saline locked. Left forearm IV, saline locked. Daughters at the bedside. Palliative care on board. Patient states she is ready to . Patient is pleasant and cooperative with cares. Follow up:
[2016-08-12 06:07] LABS: BASOPHIL # 0.1 K/uL (0.0-0.2); BASOPHIL % 0.6 %; EOSINOPHIL # 0.4 K/uL (0.0-0.5); EOSINOPHIL % 3.2 %; HEMATOCRIT 30.5 % (30.0-46.0); HEMOGLOBIN 9.4 g/dL (10.0-15.0); IMMATURE GRANULOCYTE # 0.1 K/uL (0.0-0.3); IMMATURE GRANULOCYTE % 0.5 %; LYMPHOCYTE % 16.5 %; MCH 27.7 pg (27.0-34.0); MCHC 30.8 gm/dL (32.0-36.5); MONOCYTE # 1.7 K/uL (0.0-1.0); MONOCYTE % 13.9 %; MPV 10.2 fl (9.4-12.4); NEUTROPHIL # (ANC) 7.8 K/uL (1.8-7.8); NEUTROPHIL % 65.3 %; NRBC % 0 /100WBC (0-0.00); PLATELET COUNT 290 K/uL (150-450); RBC 3.39 M/uL (3.00-5.00); RDW-CV 19.4 % (11.9-14.6); WBC 11.9 K/uL (4.0-11.0)
[2016-08-12 06:29] LABS: ANION GAP 12.7 (10.0-19.0); POTASSIUM 3.7 mMol/L (3.7-5.1); TOTAL BILIRUBIN 0.7 mg/dL (0.0-1.5); TOTAL PROTEIN 6.4 g/dL (6.0-8.4)
[2016-08-12 11:53] LABS: ALBUMIN 2.9 gm/dL (3.5-5.0); ANION GAP 13.6 (10.0-19.0); CALCIUM 8.1 mg/dL (8.5-10.5); CREATININE 0.9 mg/dL (0.5-1.1); POTASSIUM 3.6 mMol/L (3.7-5.1); TOTAL BILIRUBIN 0.6 mg/dL (0.0-1.5); TOTAL PROTEIN 6.4 g/dL (6.0-8.4)
--- NOTE | 2016-08-12 14:16 | NUR ---
A - PT SCREENED D/T LOS. S/P RAPID RESPONSE. 1+ EDEMA HT: 60" WT: 159# BMI: 31.0 LABS: K+ 3.6, ALB 2.9, WBC 11.9 MEDS: LASIX, ALDACTONE, PROTONIX, SYNTHROID DIET: CARDIAC. INTAKE: 0-25% NEEDS: 5731-0528 KCAL (15-20 KCAL/KG), 58-72 G PRO (0.8-1 G/KG), 1800 ML FLUID (25 ML/KG) D - INADEQUATE NUTRIENT INTAKE R/T DECREASED APPETITE AEB INTAKE RECORD. I - GOAL FOR INTAKE > 50% BY NEXT ASSESSMENT WILL ADD ENSURE TID TO INC NUTRIENT INTAKE. M/E - WILL MONITOR INTAKE F/U IN 4-5 DAYS.
--- NOTE | 2016-08-12 14:30 | NUR ---
Notified that [facility] palliative care met with patient and her children. Talked with Blanca and she says family and patient are deciding if what skilled care and therapy or comfort cares. She says they want patient to go to TCU and son already went over to TCU and talked with staff. They were told by TCU, stays are 2 weeks or less and family indicated they will have arrangements made for home after TCU. Talked with Noreen on TCU and they can accept patient tomorrow if she chooses therapy and if family understands it is a 2 week or less stay. Spoke with patient and 2 daughters and a son. They are still talking about options. Told them I can come back. Patient says she has some questions. Answered her questions. She says she has decided to go to TCU and work on therapy. She says if she can't do it then she will know. She asks if she can decide to stop therapy if in a few days it is to much. Told her she can decide if she wants to stop therapy later and change to comfort cares. Talked with them about a 2 week or less stay on TCU and need to be preparing/deciding if next step is home with 24/7 help or something else. They voice understanding and are working on the plan for home for her. Talked to Dr. Cottrell about patient's wishes and he thinks therapy is reasonable and is OK with transfer tomorrow. Talked to Noreen and they can accept her tomorrow at 1300. Updated daughters on the transfer time. Plan is transfer to TCU on Sunday 08/13 at 1300. Will follow.
--- NOTE | 2016-08-12 15:00 | NUR ---
PATIENT NOTED TO HAVE SOME WEAKNESS TO HER RIGHT ARM. PATIENTS FAMILY STATED IT IS NOT NEW BUT MAY BE ALITTLE WORSE NOW THEN IT WAS YESTERDAY. DR. CC. RAMOS WAS CALLED TO MAKE SURE HE WAS AWARE. NO NEW ORDERS GIVEN AT THIS TIME.
--- NOTE | 2016-08-12 18:52 | NUR ---
PATIENT THIS AM REFUSED ALL MEDICATIONS EXCEPT MORPHINE. PATIENT THEN VISITED WITH RAI AWAN APRN ABOUT PALATIVE OPTIONS AND DECIDED SHE WOULD LIKE TO TRY SOME STRENGTHENING TO SEE IF IT HELPED. PATIENT STILL WISHES TO REMAIN A DNR. SHE HAS SOME NOTED WEAKNESS ON THE RIGHT SIDE. PATIENTS FAMILY STATES THIS IS NOT NEW TODAY. DR. CC. RAMOS IS ALSO AWARE OF THE WEAKNESS. PATIENT STATES SHE DOES NOT WANT AGRESSIVE TREATMENT JUST WANTS TO GET STRONG ENOUGH TO GO HOME.
--- NOTE | 2016-08-13 07:23 | NUR ---
Significant Event: HAS DENIED PAIN ALL NIGHT. REMAINS ON 1L O2 ALL NIGHT. REMAINS IN BED. ROCA PATENT ALL NIGHT. LOTS OF FAMILY IN ROOM FOR A FEW HRS. PT WAS PLEASANT DURING THIS TIME. SOON THE LEFT, SHE GOT UPSET WITH HER SITUATION AND WAS MAD THAT SHE WALKED IN HERE HEALTHY AND NOW SHE CAN'T MOVE HER ARM OR WALK. SHE DID APOLOGIZE LATER FOR GETTING UPSET BUT SHE CONTINUED TO BE TEARY EYED THE REST OF THE NIGHT. HER DAUGHTER STAYED WITH HER FOR MOST OF THE NIGHT. HAS CONTINUED TO DENY CP. HER R) EXTREMITIES ARE WEAK. SHE HAS USE OF HER R) HAND BUT HER ARM DOES MOVE. SHE CAN MOVE HER R) LEG SLIGHTLY. NO FACIAL DROOP OR TONGUE DEVIATION NOTED. Follow up:
--- NOTE | 2016-08-13 12:14 | NUR ---
1145 PT TRANSFERED TO TCU PER BED WITH FAMILY FOLLOWING. AT TIME OF TRANSFER PT IS A/O, DUSKY BLUE COLOR, "BLUE FRANCINE" SYNDROME STANDS WITH ASSIST OF 2 AND A WALKER, O2 2LS SAYS THIS MAKES HER FEEL BETTER. LUNGS CLEAR UPPER AND CLEAR DIMINISHED LOWER, ABDOMEN SOFT AND NONTENDER WITH PRESENT BOWEL SOUNDS, PULSES STRONG SHE DOES HAVE 1-2 + EDEMA IN LOWER EXTREMITIES. IV TO LT HAND FLUSHES GOOD.TAKES MEDS WITH SIPS. FAMILY VERY HELPFUL AND IS REALISTIC WITH THE SITUATION. PT IS LUMMI AND HAS HEARING AIDES BUT DOESN'T LIKE THEM WITH THE O2 TUBING OVER HER EARS. REPORT AND TRANSFER PKT GIVEN TO TCU NURSE.
== END 2016-08-13 11:50 | DRG 250 ==
LOC: GMED 17:13 → GPCU 17:18
PROVIDERS: Family Medicine; Internal Medicine; Internal Medicine Interventional Cardiology; Nurse Practitioner; ADMIT Internal Medicine
PROC: B2111ZZ Fluoroscopy of Multiple Coronary Arteries using Low Osmolar Contrast (ICD-10-PCS; principal; 2016-08-08)
PROC: 02703ZZ Dilation of Coronary Artery, One Artery, Percutaneous Approach (ICD-10-PCS; principal; 2016-08-08)
DX: I21.4 Non-ST elevation (NSTEMI) myocardial infarction (principal); I50.41 Acute combined systolic (congestive) and diastolic (congestive) heart failure; I63.9 Cerebral infarction, unspecified; I95.9 Hypotension, unspecified; I11.0 Hypertensive heart disease with heart failure; I48.91 Unspecified atrial fibrillation; G81.91 Hemiplegia, unspecified affecting right dominant side; I25.110 Atherosclerotic heart disease of native coronary artery with unstable angina pectoris; D64.9 Anemia, unspecified; M06.9 Rheumatoid arthritis, unspecified; J44.9 Chronic obstructive pulmonary disease, unspecified; J45.909 Unspecified asthma, uncomplicated; G47.33 Obstructive sleep apnea (adult) (pediatric); E03.9 Hypothyroidism, unspecified; Z51.5 Encounter for palliative care; Z96.611 Presence of right artificial shoulder joint; T46.2X5S Adverse effect of other antidysrhythmic drugs, sequela; Z95.0 Presence of cardiac pacemaker; Z86.711 Personal history of pulmonary embolism; Z91.19 Patient's noncompliance with other medical treatment and regimen; Z87.891 Personal history of nicotine dependence; Z79.899 Other long term (current) drug therapy; Z82.49 Family history of ischemic heart disease and other diseases of the circulatory system
CPT/HCPCS: C1725; C1760; C1769; C1887; C1894; J1644; J1650; J1940; J2270; J3010; J7030; J7050; P9045

== ENCOUNTER 2016-08-13 11:52 | Inpatient (IN) | payer MEDICARE, OTHER ==
[~2016-08-13] VITALS: Ht 152.4 cm; Wt 70.9 kg
--- NOTE | ~2016-08-13 | DS ---
PATIENT'S NAME: EMPERATRIZ MUÑOZ I [facility] AGE: 86 Y [address] ROOM: [facility] [place] [id number] LOCATION: [facility] ADMIT DATE: 08/13/2016 Discharge Summary DISCHARGE DATE: 08/19/2016 FAMILY PHYSICIAN: Jean Claude Foley MD ATTENDING PHYSICIAN: Stan Cruz V SUMMARY OF HOSPITALIZATION: This is an 86-year-old female, who was admitted to the transitional care unit after having undergone a non-STEMI with cardiac catheterization in the acute unit. While at the acute unit, she was also diagnosed with a questionable CVA as well as a PE. No full workup was undertaken for the later diagnosis as there was strong considerations about making the patient just comfortable. She was placed on anticoagulation. Subsequently, family elected to try and get her stronger after this episode. As such, she was admitted to transitional care unit. There, she was DNR, but received occupational, speech, and physical therapy. She did remarkably well and was discharged home 1 week after her admission. Time dedicated to this patient's encounter is 25 minutes. MD YAMILA CARTER/jacekl /[id number] d: 08/23/16 0821 t: 09/08/16 0456, DISCHARGE SUMMARY
[~2016-08-13 11:52] MED LIST changes: +RANITIDINE HCL150 M1 PO; +SYMBICORT 16010.2 GM INH
[2016-08-19] MEDS ORDERED: ASPIRIN (CHILDR81 MG PO (15:48)
[2016-08-19] MEDS ORDERED: LOPRESSOR25 MG PO (15:50)
[2016-08-19] MEDS ORDERED: XARELTO20 MG PO (15:51)
[2016-08-19] MEDS ORDERED: ALDACTONE25 MG PO (15:51)
[2016-08-19] MEDS ORDERED: MILK OF MA400 MG/5 M PO (15:52)
== END 2016-08-19 19:45 | disposition disaster alternative care site (69) | DRG 280 ==
LOC: GSNF 11:52
PROVIDERS: ADMIT Internal Medicine
DX: I21.4 Non-ST elevation (NSTEMI) myocardial infarction (principal); I63.9 Cerebral infarction, unspecified; I26.99 Other pulmonary embolism without acute cor pulmonale; I50.21 Acute systolic (congestive) heart failure; Z66 Do not resuscitate; R53.1 Weakness; I25.10 Atherosclerotic heart disease of native coronary artery without angina pectoris; M06.9 Rheumatoid arthritis, unspecified; I25.5 Ischemic cardiomyopathy; J44.9 Chronic obstructive pulmonary disease, unspecified
CPT/HCPCS: J8610

== ENCOUNTER → 2016-09-12 | Outpatient (CLI) | payer MEDICARE, OTHER ==
[~2016-09-12] MED LIST changes: +ASPIRIN (CHILDR81 MG PO; +LOPRESSOR25 MG PO; +MILK OF MA400 MG/5 M PO; +XARELTO20 MG PO
[2016-09-12 13:05] LABS: ANION GAP 12.2 (10.0-19.0); POTASSIUM 4.2 mMol/L (3.7-5.1)
== END | disposition disaster alternative care site (69) ==
LOC: LNHI 12:46
PROVIDERS: Internal Medicine Cardiovascular Disease
DX: I25.10 Atherosclerotic heart disease of native coronary artery without angina pectoris (principal); I50.42 Chronic combined systolic (congestive) and diastolic (congestive) heart failure; I10 Essential (primary) hypertension

== ENCOUNTER → 2017-02-01 | Outpatient (CLI) | payer MEDICARE, OTHER | LOC: LNHI 16:42 | DX: I50.22 Chronic systolic (congestive) heart failure (principal) ==